=== PATIENT | male | born 1975 | race Caucasian/White ===

== ENCOUNTER 2023-06-26 19:14 | Emergency (ER) | payer BC, SELFPAY ==
[2023-06-26 19:46] VITALS: BP 139/90; PULSE 88; RESP 18; TEMP 36.4; O2SAT 96
--- NOTE | 2023-06-26 21:35 | ED.BACK ---
HPI - Back Pain/Injury General Chief Complaint: Back Injury/Pain Stated Complaint: Lower back pain Time Seen by Provider: 06/26/23 21:25 History of Present Illness HPI Narrative: Patient is a 48 year old gentleman who presents with acute on chronic back pain. He has pain in low lumbar spine with radiation to both buttocks. He has radiation down both eyes. He has no bowel or bladder symptoms no fever no chills no troubles with urination. Patient is had no abdominal pain no fevers no chills no night sweats. He has had no stumbling or falling and has had no weakness. Patient has been applying ice and taking limited Tylenol with no affect. Related Data Allergies Allergy/AdvReac Type Severity Reaction Status Date / Time No Known Drug Allergies Allergy Verified 06/26/23 19:49 Review of Systems Status of ROS: Reports: 10 or more systems reviewed and unremarkable except as noted in History and below Exam Narrative: Exam Narrative: EXAM GENERAL: Patient appears comfortable and well. EYES: No scleral icterus. ENT: Tympanic membranes and oropharynx normal. THYROID: no thyroid nodules or thyromegaly. LYMPH: No supraclavicular or cervical lymphadenopathy. SKIN: Visible skin seen during exam normal or with benign process only. EXT: No dependent lower extremity pedal edema. HEART: Regular rate and rhythm with no murmurs, rubs, or gallops. LUNGS: Clear to auscultation bilaterally with no crackles or wheezes. ABD: Soft, non tender, non distended. PSYCH: Good eye contact, speech is not pressured. Neurologic cranial nerves 2-12 grossly intact no focal defects no palpable findings with the exception of rigidity in lumbar spine. Const: Vital Signs, click to edit/add: Vital Signs - 24 hr 06/26/23 19:46 Temperature 97.6 F Pulse Rate [Left P ulse Oximeter] 88 Respiratory Rate 18 Blood Pressure [Ri ght Upper Arm] 139/90 H Pulse Oximetry 96 Oxygen Delivery Me thod Room Air Course Course ED Course: Patient seen examined. Vital Signs Vital signs: Initial Vital Signs Temperature 97.6 F 06/26/23 19:46 Temperature Source Temporal Artery Scan 06/26/23 19:46 Pulse Rate 88 06/26/23 19:46 Pulse Rhythm Regular 06/26/23 19:46 Respiratory Rate 18 06/26/23 19:46 Blood Pressure 139/90 H 10/27/23 19:46 Blood Pressure Mean 106 H 06/26/23 19:46 Blood Pressure Position Sitting 06/26/23 19:46 Pulse Oximetry 96 06/26/23 19:46 Oxygen Delivery Method Room Air 06/26/23 19:46 Vital Signs Temperature 97.6 F 06/26/23 19:46 Pulse Rate 88 06/26/23 19:46 Respiratory Rate 18 06/26/23 19:46 Blood Pressure 139/90 H 06/26/23 19:46 Pulse Oximetry 96 06/26/23 19:46 Oxygen Delivery Method Room Air 06/26/23 19:46 Temperature 97.6 F 06/26/23 19:46 Pulse Rate 88 06/26/23 19:46 Respiratory Rate 18 06/26/23 19:46 Blood Pressure 139/90 H 06/26/23 19:46 Pulse Oximetry 96 06/26/23 19:46 Oxygen Delivery Method Room Air 06/26/23 19:46 MDM - Back Pain/Injury MDM Narrative Medical decision making narrative: Patient is a 48-year-old gentleman who presents with mechanical low back pain. He has no alarm symptoms. His had limited effect with [id number] remedies. I did prescribe prednisone in limited number of Vicodin for the next several days I recommended ice. He has my card will contact me early next week and we will either do outpatient physical therapy or an MRI. Differential Diagnosis Differential diagnosis: Likely lumbar radiculopathy, sciatica, strain of lumbar region, pyelonephritis, thoracic back pain and AAA Discharge Plan Discharge Clinical Impression: Lumbar radiculopathy Patient Disposition: Home, Self-Care Condition: Improved Instructions: Back Pain (ED) Additional Instructions: Ice Pain meds as directed Prednisone as directed Follow-up with Dr. Austin next week. Activity Level: No Restrictions Discharge Diet: Regular Stand Alone Forms: [employer] Info Instructions
== END 2023-06-26 21:59 | disposition home or self-care (01) ==
LOC: ED 21:45
PROVIDERS: Emergency Provider Internal Medicine
DX: M54.16 Radiculopathy, lumbar region (principal)
CPT/HCPCS: 99283

== ENCOUNTER 2023-12-26 13:55 | Emergency (ER) | payer BC, SELFPAY ==
[2023-12-26 13:59] VITALS: BP 159/100; PULSE 92; RESP 18; TEMP 36.2; O2SAT 94; BMI 34.3
--- NOTE | 2023-12-26 14:21 | XR_ITS ---
Patient: KYLEE SHARP Facility:?[facility] Patient ID:?[id number] Site Patient ID:?[id number]. Site :?[id number] Study:?XRay-Chest 2V-12/26/2023 2:28:56 PM Ordering Physician:SHERIE Final Report: INDICATION: Dyspnea. TECHNIQUE: Chest radiographs, 2 views. COMPARISON: Chest radiograph 12/25/2021. FINDINGS: Cardiovascular/Mediastinum: Normal heart size. Unremarkable. Lungs: No focal consolidation. Linear band like opacification likely due to subsegmental atelectasis and/or scarring. Airways: Trachea remains midline. Pleura: No pleural effusions or pneumothorax. Bones: No acute osseous abnormalities. Mild degenerative changes of the thoracic spine. Upper abdomen: Unremarkable. IMPRESSION: No acute cardiopulmonary process. Dictated by Reilly Grullon MD @ 12/26/2023 3:27:42 PM Signed by:?Reilly Grullon MD @12/26/2023 3:27:42 PM (Electronic Signature)
--- NOTE | 2023-12-26 14:23 | ED_ITS ---
HPI - General Adult General Chief complaint: Cough Stated complaint: coughing, fatigue Time Seen by Provider: 12/26/23 13:56 Source: patient Mode of arrival: ambulatory Limitations: no limitations History of Present Illness HPI narrative: 48-year-old male on no medications, presents with 2 weeks of not feeling well. He states that it started with a scratchy throat and headache. This proceeded to a cough that keeps him up all night. He states that he believes he had a fever twice in the last 2 weeks but nothing in the last several days. He denies chest pain or shortness of breath. He denies abdominal discomfort. He denies any swelling of the extremities, no rashes. He states that he did get his symptoms from a co-worker who was also ill for quite some time. He feels achy all over. Appetite is a little bit decreased but he has been eating and drinking. No urinary symptoms. No recent traveling. Related Data Previous Rx's Medication Instructions Recorded benzonatate 100 mg capsule 100 mg PO TID PRN cough #14 caps 12/26/23 Allergies Allergy/AdvReac Type Severity Reaction Status Date / Time No Known Drug Allergies Allergy Verified 06/26/23 19:49 Review of Systems Status of ROS: Reports: 10 or more systems reviewed and unremarkable except as noted in History and below PFSH PFS Social History Smoking Status: Never smoker Do you use any of these nicotine containing products: None Second hand tobacco smoke exposure: No How often do you have a drink containing alcohol: never How often do you have six or more drinks on one occasion: Never AUDIT-C Alcohol total score: 0 Non-prescribed substance use: denies use service: No Exam Narrative: Exam Narrative: Overweight, well-developed patient in no acute distress. Alert and oriented. Answers questions appropriately. Mood and affect are appropriate. Thoughts are goal oriented and rational. No tangential or magical thinking noted. Patient speaks in full sentences without needing to catch his breath. HEENT: Normocephalic atraumatic. Pupils are equally round reactive to light. Extraocular muscles are intact. Conjunctivae are moist without any icterus noted. Moist mucous membranes. Posterior pharynx is normal. Uvula is large. Neck is soft without any lymphadenopathy or thyromegaly. No masses are appr eciated. Cardiovascular: Heart is regular rate and rhythm S1 and S2 are present without any murmurs. Lungs: Clear to auscultation bilaterally no wheezes rhonchi or rales are appreciated. Patient takes deep breaths without any discomfort. Abdomen: Soft and nontender nondistended with normal bowel sounds. Extremities: Bilateral lower extremities are without edema. Skin: Well perfused without any obvious rashes. Const: Vital Signs, click to edit/add: Vital Signs - 24 hr 12/26/23 13:59 12/26/23 15:00 12/26/23 15:01 Temperature 97.2 F L Pulse Rate [Right Pulse Oximeter] 92 89 89 Respiratory Rate 18 18 Blood Pressure [Ri ght Upper Arm] 159/100 H 141/95 H Pulse Oximetry 94 96 Oxygen Delivery Me thod Room Air Room Air Course Course ED Course: Chest x-ray, read by me, does not show any acute pathology. Labs were unremarkable including a CBC, chemistries and triple swab. Vital Signs Vital signs: Initial Vital Signs Temperature 97.2 F L 12/26/23 13:59 Temperature Source Temporal Artery Scan 12/26/23 13:59 Pulse Rate 92 12/26/23 13:59 Respiratory Rate 18 12/26/23 13:59 Blood Pressure 159/100 H 12/26/23 13:59 Blood Pressure Mean 119 H 12/26/23 13:59 Blood Pressure Position Sitting 12/26/23 13:59 Pulse Oximetry 94 12/26/23 13:59 Oxygen Delivery Method Room Air 12/26/23 13:59 Vital Signs Temperature 97.2 F L 12/26/23 13:59 Pulse Rate 92 12/26/23 13:59 Respiratory Rate 18 12/26/23 13:59 Blood Pressure 159/100 H 12/26/23 13:59 Pulse Oximetry 94 12/26/23 13:59 Oxygen Delivery Method Room Air 12/26/23 13:59 Temperature 97.2 F L 12/26/23 13:59 Pulse Rate 89 12/26/23 15:01 Respiratory Rate 18 12/26/23 15:01 Blood Pressure 141/95 H 12/26/23 15:01 Pulse Oximetry 96 12/26/23 15:01 Oxygen Delivery Method Room Air 12/26/23 15:01 Medical Decision Making MDM Narrative Medical decision making narrative: 48-year-old male with cough, likely viral in nature. Will send the patient home with Xochitl Low. Lab Data Lab results reviewed: Yes I reviewed the patient's lab results Labs: Lab Results 12/26/23 12/26/23 Range/Units 14:27 14:42 WBC 7.36 (4.50-11.00) K/uL RBC 5.19 (4.30-5.90) m/uL Hgb 14.5 (13.5-17.5) gm/dL Hct 43.2 (37.0-53.0) % MCV 83 (80-100) fL MCH 28 (26-34) pg MCHC 34 (32-36) gm/dL RDW Coeff of Elizabeth 12.0 (11.5-15.5) % Plt Count 263 (140-440) K/uL Neut % (Auto) 68.0 (42.0-72.0) % Lymph % (Auto) 18.8 L (20-44) % [place] % (Auto) 7.5 (0.0-11.0) % Eos % (Auto) 4.2 (0.0-7.0) % Baso % (Auto) 0.4 (0.0-3.0) % Neut # (Auto) 5.01 (1.7-7.0) K/uL Lymph # (Auto) 1.40 (0.90-2.90) K/uL [place] # (Auto) 0.60 (0.00-0.90) K/UL Eos # (Auto) 0.31 (0.00-0.50) K/uL Baso # (Auto) 0.03 (0.00-0.30) K/uL Abs Immat Gran (auto) 0.08 (0.00-0.30) K/uL Imm/Tot Granulo (auto) 1.1 % Sodium 140 (135-149) mmol/L Potassium 3.8 (3.6-5.1) mmol/L Chloride 106 (96-114) mmol/L Carbon Dioxide 29 (20-32) mmol/L Anion Gap 5 L (7-15) mEq/L BUN 12 (5-24) mg/dL Creatinine 0.6 (0.5-1.5) mg/dL Estimated Creat Clear 168.31 Estimated GFR 118 ml/min Glucose 109 (60-115) mg/dL Calcium 9.0 (8.4-10.6) mg/dL SARS-CoV-2 (PCR) Negative SARS-CoV-2 (Negative) Influenza Type A (PCR) Negative PCR FLU A (Negative) Influenza Type B (PCR) Negative PCR FLU B (Negative) RSV (PCR) Negative PCR RSV (Negative) Imaging Data Chest x-ray: Attestation: I have reviewed the pertinent imaging results. Radiologist's impression: Chest radiographs, 2 views. COMPARISON: Chest radiograph 12/25/2021. FINDINGS: Cardiovascular/Mediastinum: Normal heart size. Unremarkable. Lungs: No focal consolidation. Linear band like opacification likely due to subsegmental atelectasis and/or scarring. Airways: Trachea remains midline. Pleura: No pleural effusions or pneumothorax. Bones: No acute osseous abnormalities. Mild degenerative changes of the thoracic spine. Upper abdomen: Unremarkable. IMPRESSION: No acute cardiopulmonary process. Discharge Plan Discharge Clinical Impression: Cough Patient Disposition: Home, Self-Care Condition: Stable Additional Instructions: Your workup did not show any evidence of pneumonia or other bacterial infection today. Cough is likely viral in nature and can last few weeks. Try taking Tessalon Perles (benzonatate) throughout the day as needed/as directed and before bed to see if this helps you sleep. Can also take [id number] cough syrups or cough drops. Follow-up with your primary care provider in 1-2 weeks if you feel that you are not improving. Return to the ER if you develop a fever or your symptoms become worse. Prescriptions: New benzonatate 100 mg capsule 100 mg PO TID PRN (Reason: cough) Qty: 14 0RF Follow Up/Referrals: Provider,Not a Local [Primary Care Provider] - Stand Alone Forms: [employer] Info Instructions
--- OUTSIDE RECORDS SUMMARY | 2023-12-26 14:39 | XMS_ITS | Clinical Summary ---
Author Name Unknown Organization [facility] Address [address] [place] [address] Care Team Providers Care Warehouse Consultant Name Role Phone No Primary/Referring, Phy Primary Care Provider Unavailable Source Comments You are receiving this document as you are listed as the primary care provider,follow-up provider, or the patient has been referred to you for consultation.This is in compliance with the Medicare and[facility] E[facility] Incentive [facility],which states Providers who transition their patient to another setting of careor provider of care or refers their patient to another provider of care shouldprovide summary care record for each transition of care or referral. [facility] Allergies No known active allergies Medications Medication Sig Dispensed Refills Start Date End Date Status oxyCODONE-acetaminop hen (PERCOCET) 5-325 MG tablet Take 1 Tablet by mouth every 4 hours as needed for Pain. 10 Tablet 03/02/2021 Active tamsulosin (FLOMAX) 0.4 MG CAPS capsule Take 1 Capsule by mouth daily. 14 Capsule 3 03/02/2021 Active Social History Tobacco Use Types Packs/Day Years Used Date Smoking Tobacco: Never Smokeless Tobacco: Never Alcohol Use Standard Drinks/Week Comments Yes 0 (1 standard drink = 0.6 oz pur e alcohol) Sex and Gender Information Value Date Recorded Sex Assigned at Not on file Gender Identity Not on file Sexual Orientation Not on file Last Filed Vital Signs Vital Sign Reading Time Taken Comments Blood Pressure 148/80 03/02/2021 10:46 PM CDT Pulse 88 03/02/2021 10:46 PM CDT Temperature 36.6 ??C (97.8 ??F) 03/02/2021 8:29 PM CD T Respiratory Rate 12 03/02/2021 10:46 PM CDT Oxygen Saturation 97% 03/02/2021 10:46 PM CDT Inhaled Oxygen Concentration - - Weight 113.4 kg (250 lb) 03/02/2021 8:29 PM CDT Height 182.9 cm (6') 03/02/2021 8:29 PM CDT Body Mass Index 33.91 03/02/2021 8:29 PM CDT Plan of Treatment Health Maintenance Due Date Last Done Comments Colon Cancer Screening Plan Due 1974 Hep C Screening (Preventive Services) 1974 HIV Screening (Preventive Services) 1990 Adult Preventive Visit 1992 DTaP/Tdap/Td (1 - Tdap) 1993 HepB (1) 1993 Cholesterol 2009 COVID-19 Vaccine ( - 2022-2 4 season) 2023 Influenza (#1) 2023 Zoster/Shingles (1 of 2) 2024 HepA Aged Out No longer eligi ble based on patient's age to complete this topic Hib Aged Out No longer eligi ble based on patient's age to complete this topic IPV (Polio) Aged Out No longer eligi ble based on patient's age to complete this topic MCV4 Aged Out No longer eligi ble based on patient's age to complete this topic Pneumococcal Aged Out No longer eligi ble based on patient's age to complete this topic Care Teams Warehouse Consultant Relationship Specialty Start Date End Date No Primary/Referring, Leiday PCP - General 03/02/21
[2023-12-26 14:48] LABS: Basophils Absolute Auto 0.03 K/uL (0.00-0.30); Basophils Percent Auto 0.4 % (0.0-3.0); Eosinophils Absolute Auto 0.31 K/uL (0.00-0.50); Eosinophils Percent Auto 4.2 % (0.0-7.0); Hematocrit 43.2 % (37.0-53.0); Hemoglobin* 14.5 gm/dL (13.5-17.5); Immature Granulocytes Abs Auto 0.08 K/uL (0.00-0.30); Immature Granulocytes Pct Auto 1.1 %; Lymphocytes Percent Auto 18.8 % (20-44); Mean Corpuscular HGB Conc 34 gm/dL (32-36); Mean Corpuscular Hemoglobin 28 pg (26-34); Mean Corpuscular Volume 83 fL (80-100); Monocytes Percent Auto 7.5 % (0.0-11.0); Neutrophils Absolute Auto 5.01 K/uL (1.7-7.0); Platelet Count* 263 K/uL (140-440); Red Blood Count 5.19 m/uL (4.30-5.90); White Blood Count* 7.36 K/uL (4.50-11.00)
[2023-12-26 14:59] LABS: Slide Review Reflex No
[2023-12-26 15:00] VITALS: PULSE 89
[2023-12-26 15:01] VITALS: BP 141/95; PULSE 89; RESP 18; O2SAT 96
[2023-12-26 15:05] LABS: Chloride* 106 mmol/L (96-114); Potassium* 3.8 mmol/L (3.6-5.1); Sodium* 140 mmol/L (135-149)
[2023-12-26 15:07] LABS: PCR FLU A Negative PCR FLU A (Negative); PCR FLU B Negative PCR FLU B (Negative); PCR RSV Negative PCR RSV (Negative); SARS PCR* Negative SARS-CoV-2 (Negative)
[2023-12-26 15:08] LABS: Anion Gap 5 mEq/L (7-15); Blood Urea Nitrogen* 12 mg/dL (5-24); Carbon Dioxide* 29 mmol/L (20-32); Creatinine* 0.6 mg/dL (0.5-1.5); Est. Creatinine Clearance* 168.31; Estimated Glomerular Filt Rate 118 ml/min; Glucose* 109 mg/dL (60-115)
== END 2023-12-26 15:55 | disposition home or self-care (01) ==
LOC: ED 14:37
PROVIDERS: Emergency Provider Family Medicine
DX: R05.9 Cough, unspecified (principal)
CPT/HCPCS: 36415; 71046; 80048; 85025; 87631; 99283; 99284

== ENCOUNTER 2024-05-03 19:53 | Emergency (ER) | payer OTHER, SELFPAY ==
[2024-05-03 19:59] VITALS: BP 126/78; PULSE 116; RESP 20; TEMP 38.2; O2SAT 96; BMI 34.3
[2024-05-03 20:28] LABS: Basophils Percent Auto 0.1 % (0.0-3.0); Eosinophils Percent Auto 0.3 % (0.0-7.0); Hematocrit 40.9 % (37.0-53.0); Hemoglobin* 13.5 gm/dL (13.5-17.5); Immature Granulocytes Pct Auto 0.2 %; Lymphocytes Percent Auto 6.9 % (20-44); Mean Corpuscular HGB Conc 33 gm/dL (32-36); Mean Corpuscular Hemoglobin 28 pg (26-34); Mean Corpuscular Volume 85 fL (80-100); Monocytes Percent Auto 5.8 % (0.0-11.0); Neutrophils Percent Auto 86.7 % (42.0-72.0); Platelet Count* 213 K/uL (140-440); RDW Coefficient of Variation % 12.1 % (11.5-15.5); Red Blood Count 4.83 m/uL (4.30-5.90); White Blood Count* 18.82 K/uL (4.50-11.00)
--- OUTSIDE RECORDS SUMMARY | 2024-05-03 20:29 | XMS_ITS | Clinical Summary ---
Author Organization [facility] Address [address], [place] [address] Care Team Providers Care Front Office Specialist Name Role Phone No Primary/Referring, Phy Primary Care Provider Unavailable Source Comments You are receiving this document as you are listed as the primary care provider,follow-up provider, or the patient has been referred to you for consultation.This is in compliance with the Medicare and[facility]centive [facility],which states Providers who transition their patient to another setting of careor provider of care or refers their patient to another provider of care shouldprovide summary care record for each transition of care or referral. [email or web address] Allergies No known active allergies Medications Medication [...] 1974 Hep C Screening (Preventive Services) 1974 PSA Screening Discussion 1974 HIV Screening (Preventive Services) 1990 Adult Preventive Visit 1992 DTaP/Tdap/Td (1 - Tdap) 1993 HepB (1) 1993 Cholesterol 2009 Zoster/Shingles (1 of 2) 2024 COVID-19 Vaccine (1 - 2022-2 4 season) 2024 Influenza (#1) 2024 HepA Aged Out No longer eligi [...] age to complete this topic Care Teams Front Office Specialist Relationship Specialty Start Date End Date No Primary/Referring, Phy PCP - General 03/02/21
[2024-05-03 20:32] LABS: Slide Review Reflex No
[2024-05-03] MEDS: CEFAZOLIN 2 GM INJ IVP (20:39)
[2024-05-03 20:40] VITALS: PULSE 103; O2SAT 95
[2024-05-03] MEDS: ACETAMINOPHEN 500 MG TABLET 1000 MG PO (20:40)
[2024-05-03 20:45] LABS: Chloride* 102 mmol/L (96-114); Potassium* 3.9 mmol/L (3.6-5.1); Sodium* 137 mmol/L (135-149)
[2024-05-03 20:47] LABS: Creatinine* 0.8 mg/dL (0.5-1.5); Est. Creatinine Clearance* 124.84; Estimated Glomerular Filt Rate 108 ml/min
[2024-05-03 20:48] LABS: Anion Gap 8 mEq/L (7-15); Blood Urea Nitrogen* 11 mg/dL (7-30); Carbon Dioxide* 27 mmol/L (20-32); Glucose* 125 mg/dL (60-115)
[2024-05-03 20:49] LABS: Calcium* 9.2 mg/dL (8.4-10.6)
--- NOTE | 2024-05-03 21:02 | ED.GENADULT ---
HPI - General Adult General Chief complaint: Animal Bite Stated complaint: dog bite - work [employer] Time Seen by Provider: 05/03/24 20:05 Source: patient Mode of arrival: ambulatory Limitations: no limitations History of Present Illness HPI narrative: 49-year-old male comes in today with leg pain. Patient was bit by a dog a 7 days ago on the left lower extremity. In the last couple days he has noticed increased swelling and erythema and discomfort. He denies fevers at home, no chills. No nausea or vomiting. No changes in his appetite although he states that he has been in the whole lot today because he has been dizzy. He denies any chest pain, cough, abdominal pain. Patient is a surprise to hear that he is febrile upon arrival to the ER. He denies any medical history, takes no medications. Related Data Home Medications ?Medication ?Instructions ?Recorded ?Confirmed No Known Home Medications 05/03/24 05/03/24 Allergies Allergy/AdvReac Type Severity Reaction Status Date / Time No Known Drug Allergies Allergy Verified 06/26/23 19:49 Review of Systems Status of ROS: Reports: 10 or more systems reviewed and unremarkable except as noted in History and below [facility] Social History Smoking Status: Never smoker Do you use any of these nicotine containing products: None Second hand tobacco smoke exposure: No How often do you have a drink containing alcohol: never How often do you have six or more drinks on one occasion: Never AUDIT-C Alcohol total score: 0 Non-prescribed substance use: denies use service: No Exam Narrative: Exam Narrative: Well-nourished well-developed patient in no acute distress. Alert and oriented. Answers questions appropriately. Mood and affect are appropriate. Thoughts are goal oriented and rational. No tangential or magical thinking noted. Patient speaks in full sentences without needing to catch a breath. HEENT: Normocephalic atraumatic. Pupils are equally round reactive to light. Extraocular muscles are intact. Conjunctivae are moist without any icterus noted. Moist mucous membranes. Neck is soft. Cardiovascular: Tachycardic, S1-S2 present without any murmurs. Lungs: Clear to auscultation bilaterally no wheezes rhonchi or rales are appreciated. Patient takes deep breaths without any discomfort. Abdomen: Soft and nontender nondistended with normal bowel sounds. Extremities: Bilateral lower extremities are without pitting edema. The left lower extremity shows erythema from the ankle all the way to just distal to the knee, erythema or circumferential, the extremity is hot to touch. He has no calf tenderness. The skin is swollen and shiny. Normal be PT and DP pulses. Erythema does not involve the knee or the ankle joints. Const: Vital Signs, click to edit/add: Vital Signs - 24 hr 05/03/24 19:59 05/03/24 20:40 05/03/24 21:11 Temperature 100.8 F H Pulse Rate [Pulse Oximeter] 116 H 103 H 105 H Respiratory Rate 20 Blood Pressure [[facility] Upper Arm] 126/78 120/74 Pulse Oximetry 96 95 95 Oxygen Delivery Me thod Room Air Room Air Room Air Course Course ED Course: IV established and labs drawn. Patient is given a dose of Tylenol. Blood cultures drawn. CBC showed a white cell count of 18.82, 86.7% neutrophils. Dose of IV cefazolin is given. Lactate is normal at 1.0. Chemistries are normal. CRP 14.5 500 mL of normal saline is started. After fluids and Tylenol, patient's pulse went from 116 to 100. A temperature down to 99.6. Vital Signs Vital signs: Initial Vital Signs Temperature 100.8 F H 05/03/24 19:59 Temperature Source Oral 05/03/24 19:59 Pulse Rate 116 H 05/03/24 19:59 Respiratory Rate 20 05/03/24 19:59 Blood Pressure 126/78 05/03/24 19:59 Blood Pressure Mean 94 05/03/24 19:59 Blood Pressure Position Sitting 05/03/24 19:59 Pulse Oximetry 96 05/03/24 19:59 Oxygen Delivery Method Room Air 05/03/24 19:59 Vital Signs Temperature 100.8 F H 05/03/24 19:59 Pulse Rate 116 H 05/03/24 19:59 Respiratory Rate 20 05/03/24 19:59 Blood Pressure 126/78 05/03/24 19:59 Pulse Oximetry 96 05/03/24 19:59 Oxygen Delivery Method Room Air 05/03/24 19:59 Temperature 100.8 F H 05/03/24 19:59 Pulse Rate 105 H 05/03/24 21:11 Respiratory Rate 20 05/03/24 19:59 Blood Pressure 120/74 05/03/24 21:11 Pulse Oximetry 95 05/03/24 21:11 Oxygen Delivery Method Room Air 05/03/24 21:11 Medications Administered Medications: Discontinued Medications Generic Name Dose Route Start Last Admin Trade Name Leyla PRN Reason Stop Dose Admin Acetaminophen 1,000 mg 05/03/24 20:11 05/03/24 20:40 Acetaminophen 500 Mg Tablet PO 05/03/24 20:12 1,000 mg ONCE ONE Administration Cefazolin Sodium 2 gm 05/03/24 20:11 05/03/24 20:39 Cefazolin 2 Gm Inj IVP 05/03/24 20:12 2 gm ONCE ONE Administration Sodium Chloride 500 mls @ 500 mls/hr 05/03/24 20:11 05/03/24 21:10 0.9 % Sodium Chloride 500 Ml IV 05/03/24 21:10 500 mls/hr .Q1H ONE Administration Medical Decision Making MDM Narrative Medical decision making narrative: Dog bite resulting in cellulitis. Patient does not wish to be admitted at this time states that he has to go to work tomorrow. Because he feels fine I do think that going home is an acceptable plan of action, but I do want him to have close follow-up. Patient does not have a primary care provider. He is going to call the [facility] 1st thing in the morning to set up an ER follow-up appointment in the next 24-48 hours. He understands if he becomes weak, starts vomiting, or in general starts to feel worse he should return to the ER. Lab Data Lab results reviewed: Yes I reviewed the patient's lab results Labs: Lab Results 05/03/24 Range/Units 20:22 WBC 18.82 H (4.50-11.00) K/uL RBC 4.83 (4.30-5.90) m/uL Hgb 13.5 (13.5-17.5) gm/dL Hct 40.9 (37.0-53.0) % MCV 85 (80-100) fL MCH 28 (26-34) pg MCHC 33 (32-36) gm/dL RDW Coeff of Elizabeth 12.1 (11.5-15.5) % Plt Count 213 (140-440) K/uL Neut % (Auto) 86.7 H (42.0-72.0) % Lymph % (Auto) 6.9 L (20-44) % [place] % (Auto) 5.8 (0.0-11.0) % Eos % (Auto) 0.3 (0.0-7.0) % Baso % (Auto) 0.1 (0.0-3.0) % Neut # (Auto) 16.30 H (1.7-7.0) K/uL Lymph # (Auto) 1.30 (0.90-2.90) K/uL [place] # (Auto) 1.10 H (0.00-0.90) K/UL Eos # (Auto) 0.10 (0.00-0.50) K/uL Baso # (Auto) 0.00 (0.00-0.30) K/uL Abs Immat Gran (auto) 0.00 (0.00-0.30) K/uL Imm/Tot Granulo (auto) 0.2 % Sodium 137 (135-149) mmol/L Potassium 3.9 (3.6-5.1) mmol/L Chloride 102 (96-114) mmol/L Carbon Dioxide 27 (20-32) mmol/L Anion Gap 8 (7-15) mEq/L BUN 11 (7-30) mg/dL Creatinine 0.8 (0.5-1.5) mg/dL Estimated Creat Clear 124.84 Estimated GFR 108 ml/min Glucose 125 H (60-115) mg/dL Lactate 1.0 (0.5-1.9) mmol/L Calcium 9.2 (8.4-10.6) mg/dL C-Reactive Protein 14.5 H (0.5-1.0) mg/dL Discharge Plan Discharge Clinical Impression: Bite by animal, Cellulitis Patient Disposition: Home, Self-Care Condition: Stable Additional Instructions: Take all antibiotics as prescribed. Stay well hydrated. Okay to take Tylenol up to 1000 mg 3 times per day or ibuprofen up to 800 mg 4 times per day. You need to call the primary care clinic in [place] tomorrow morning and ask for a same-day appointment for emergency room follow-up. You should be seen tomorrow or the day after at the latest. If you start to vomit, feel weak, lightheaded, or generally start to feel worse, you should return to the emergency department. Augmentin 875 p.o. b.i.d. for 7 days sent to [facility]. Prescriptions: No Action No Known Home Medications Follow Up/Referrals: Provider,Not a Local [Primary Care Provider] - Stand Alone Forms: [employer] Info Instructions
[2024-05-03 21:06] LABS: C Reactive Protein* 14.5 mg/dL (0.5-1.0)
[2024-05-03] MEDS: 0.9 % SODIUM CHLORIDE 500 ML 500 ML IV (21:10)
[2024-05-03 21:11] VITALS: BP 120/74; PULSE 105; O2SAT 95
[2024-05-03 21:43] VITALS: PULSE 100; TEMP 37.6
== END 2024-05-03 21:57 | disposition home or self-care (01) ==
PROVIDERS: Emergency Provider Family Medicine
DX: L03.116 Cellulitis of left lower limb (principal); W54.0XXA Bitten by dog, initial encounter
CPT/HCPCS: 36415; 80048; 83605; 85025; 86140; 87040; 96374; 99283; 99284; A9270; J0690; J7030

== ENCOUNTER 2024-07-02 10:43 | Emergency (ER) | payer BC, SELFPAY ==
[2024-07-02 10:47] VITALS: BP 176/98; PULSE 93; RESP 18; TEMP 36.1; O2SAT 97; BMI 35.3
--- NOTE | 2024-07-02 11:02 | CRLHL7_ITS ---
For Patients: As a result of the Century Cures Act, medical imaging exams and procedure reports are released immediately into your electronic medical record. You may view this report before your referring provider. If you have questions, please contact your health care provider. INDICATION: Right-sided abdominal pain. Evaluate for urolithiasis. TECHNIQUE: CT abdomen and pelvis without contrast. Coronal and sagittal reformats were obtained. COMPARISON: CT abdomen/pelvis from 12/25/2021. FINDINGS: Lower chest: Within normal limits. Liver: Within normal limits. Spleen: Within normal limits. Pancreas: Within normal limits. Gallbladder and bile ducts: Within normal limits. Kidneys: Multiple prominent left parapelvic cysts. No obstructing or nonobstructing calculi. No hydronephrosis or ureterectasis. Adrenal glands: Within normal limits. Bowel: Stool throughout the ascending colon. Sigmoid diverticulosis. Vascular: Minor atherosclerotic changes. Lymph nodes: Within normal limits. Peritoneum: Within normal limits. Pelvis: Within normal limits. Abdominal wall: There is a periumbilical hernia which does not contain any loops of bowel. The abdominal defect measures up to 12 millimeters in axial diameter. There also bilateral fat containing inguinal hernias. Bones: No acute fractures. L5-S1 advanced disc degeneration. Right central/subarticular disc osteophyte which may impinge the right S1 nerve root. Bilateral SI joint arthrosis. IMPRESSION: 1. No acute intra-abdominal pathology, including no evidence of obstructing or nonobstructing renal calculi. Please note that all CT scans at this facility use dose modulation, iterative reconstruction, and/or weight-based dosing when appropriate to reduce radiation dose to as low as reasonably achievable. Dictated by Leno Ashby MD @ 07/02/2024 12:14:10 PM (Electronically Signed)
--- NOTE | 2024-07-02 11:07 | ED_ITS ---
HPI - Abdominal Pain General Date Seen: 07/02/24 Chief Complaint: Back Injury/Pain Stated Complaint: Back pain, suspected kidney stones Time Seen by Provider: 07/02/24 10:47 Source: patient Mode of arrival: ambulatory Limitations: no limitations History of Present Illness HPI narrative: Patient is a 49-year-old gentleman who presents here ambulatory to the emergency room for evaluation of right-sided back and abdominal discomfort he comes and goes over the course of the last 9-10 days. Sometimes it doubles him over. Feels colicky in nature, and feels a lot like previous kidney stones that he has had. He just could not take it any longer presented here for evaluation he is not taking any medications for this no Tylenol ibuprofen or any other NSAIDs. Typically tells me with his kidney stones they do not help. His last bout was approximately 3-4 years ago he was able to pass it on his own, he has never before had have instrumentation done to retrieve the stone. He said whatever they gave him in the emergency room last time lasted for 3-4 days and he did not require any narcotic medication. Denies any fevers or chills, nausea vomiting, abnormal bowel movements, dysuria frequency or hematuria with this works for [employer] and has been able to work through this issue. Does have a history of umbilical, and bilateral inguinal hernias that he has thinks he would like to get fixed before he retires from [employer] next year. Appetite has been good, he is on no chronic medications other than daily multivitamin. No bad habits such as drugs, alcohol or smoking. Related Data Previous Rx's ?Medication ?Instructions ?Recorded ketorolac 10 mg tablet 10 mg PO Q8H PRN pain 4 days #14 07/02/24 tabs Allergies Allergy/AdvReac Type Severity Reaction Status Date / Time No Known Drug Allergies Allergy Verified 06/26/23 19:49 Review of Systems Status of ROS Reports: 10 or more systems reviewed and unremarkable except as noted in History and below PFSH [facility] Social History What is your current living situation?: I presently have a place to live Problems where you live: no known problems In the past 12 months, utilities in danger of being shut off: no In past 12 months, lack of transportation kept you from medical appts, meetings, work, or getting things needed for daily living: no In the past 12 mos, have been you worried that your food would run out before you had money to buy more?: never true In the past 12 mos, the food you bought just didn't last and you didn't have money to buy more?: never true Smoking Status: Never smoker Do you use any of these nicotine containing products: None Second hand tobacco smoke exposure: No How often do you have a drink containing alcohol: never How often do you have six or more drinks on one occasion: Never AUDIT-C Alcohol total score: 0 Non-prescribed substance use: denies use How often does anyone, including family, friends and others, physically hurt you : never How often does anyone, including family, friends and others, insult or talk down to you: never How often does anyone, including family, friends and others, threaten you with harm: never How often does anyone, including family, friends and others, scream or curse at you: never service: No Exam Narrative: Exam Narrative: On examination in room 2 patient appears to be no distress, pupils are equal round reactive to light there is no scleral icterus redness oropharynx normal neck is supple no meningismus, chest is good air entry bilaterally with no wheezing crackles noted his heart sounds are normal his abdomen is slightly obese. With the slightly elevated BMI, but is nontender to palpation negative Cohn sign, he does have bilateral non incarcerated, inguinal hernias, and an umbilical hernia also. That all can be gently palpated and reduced. Normal male genitalia, bowel sounds are normal, some mild right-sided CVA discomfort. When he is able to move around, forward flexion extension and lateral flexion normal SLR is are negative to 90?, with no evidence of any radicular symptoms into his legs skin reveals no petechiae rashes, Const: Vital Signs, click to edit/add: Vital Signs - 24 hr 07/02/24 10:47 Temperature 97.0 F L Pulse Rate [Right Pulse Oximeter] 93 Respiratory Rate 18 Blood Pressure [Ri ght Upper Arm] 176/98 H Pulse Oximetry 97 Oxygen Delivery Me thod Room Air Documenting provider has reviewed patient's vital signs: yes Course Course ED Course: Discussed with the patient, I do not see anything acute here, I would recommend rechecking his glucose and his blood pressure with primary care, I little bit of Toradol may help him with his pain with his back, as he is going to [place] if as and [place], although chronically cannot use this, as it can cause some issues. Would recommend follow up, if ongoing signs and symptoms with primary care, explained this to him and he was accepting. He felt a little bit better after we gave him the Toradol. Vital Signs Vital signs: Initial Vital Signs Temperature 97.0 F L 07/02/24 10:47 Temperature Source Temporal Artery Scan 07/02/24 10:47 Pulse Rate 93 07/02/24 10:47 Respiratory Rate 18 07/02/24 10:47 Blood Pressure 176/98 H 07/02/24 10:47 Blood Pressure Mean 124 H 07/02/24 10:47 Blood Pressure Position Sitting 07/02/24 10:47 Pulse Oximetry 97 07/02/24 10:47 Oxygen Delivery Method Room Air 07/02/24 10:47 Vital Signs Temperature 97.0 F L 07/02/24 10:47 Pulse Rate 93 07/02/24 10:47 Respiratory Rate 18 07/02/24 10:47 Blood Pressure 176/98 H 07/02/24 10:47 Pulse Oximetry 97 07/02/24 10:47 Oxygen Delivery Method Room Air 07/02/24 10:47 Temperature 97.0 F L 07/02/24 10:47 Pulse Rate 93 07/02/24 10:47 Respiratory Rate 18 07/02/24 10:47 Blood Pressure 176/98 H 07/02/24 10:47 Pulse Oximetry 97 07/02/24 10:47 Oxygen Delivery Method Room Air 07/02/24 10:47 Medications Administered Medications: Discontinued Medications Generic Name Dose Route Start Last Admin Trade Name Freq PRN Reason Stop Dose Admin Ketorolac Tromethamine 30 mg 07/02/24 11:02 07/02/24 11:21 Ketorolac 30 Mg/Ml Inj IVP 07/02/24 11:03 30 mg ONCE ONE Administration MDM - Abdominal Pain MDM Narrative Medical decision making narrative: During this evaluation of this patient I considered multiple differential diagnosis is which included the life-threatening such as appendicitis, aortic aneurysm, mesenteric ischemia, bowel perforation, volvulus, and bowel obstruction. Other differential diagnosis is include but are not limited to cho lecystitis, pancreatitis, hepatitis, gastritis, GERD, diverticulitis, peptic ulcer disease, pyelonephritis/UTI, renal colic/stone, testicular torsion as well as other acute scrotal processes, inflammatory bowel disease, as well as other etiologies Medical Records Attestation: I reviewed the patient's medical records. Lab Data Attestation: I reviewed the patient's lab results. Lab results narrative: Glucose was slightly elevated at 160, white count normal, hemoglobin normal, there was a slight elevation of his transaminases probably linked to fatty liver. Labs: Lab Results 07/02/24 Range/Units 11:20 WBC 6.01 (4.50-11.00) K/uL RBC 5.00 (4.30-5.90) m/uL Hgb 13.9 (13.5-17.5) gm/dL Hct 41.9 (37.0-53.0) % MCV 84 (80-100) fL MCH 28 (26-34) pg MCHC 33 (32-36) gm/dL RDW Coeff of Elizabeth 12.0 (11.5-15.5) % Plt Count 217 (140-440) K/uL Neut % (Auto) 72.5 H (42.0-72.0) % Lymph % (Auto) 17.1 L (20-44) % Phillips % (Auto) 7.5 (0.0-11.0) % Eos % (Auto) 2.2 (0.0-7.0) % Baso % (Auto) 0.5 (0.0-3.0) % Neut # (Auto) 4.40 (1.7-7.0) K/uL Lymph # (Auto) 1.00 (0.90-2.90) K/uL Phillips # (Auto) 0.50 (0.00-0.90) K/UL Eos # (Auto) 0.13 (0.00-0.50) K/uL Baso # (Auto) 0.03 (0.00-0.30) K/uL Abs Immat Gran (auto) 0.01 (0.00-0.30) K/uL Imm/Tot Granulo (auto) 0.2 % Sodium 138 (135-149) mmol/L Potassium 4.0 (3.6-5.1) mmol/L Chloride 103 (96-114) mmol/L Carbon Dioxide 26 (20-32) mmol/L Anion Gap 9 (7-15) mEq/L BUN 13 (7-30) mg/dL Creatinine 0.8 (0.5-1.5) mg/dL Estimated Creat Clear 121.25 Estimated GFR 108 ml/min Glucose 164 H (60-115) mg/dL Calcium 9.1 (8.4-10.6) mg/dL Total Bilirubin 0.4 (0.1-1.5) mg/dL Direct Bilirubin 0.2 (0.0-0.5) mg/dL AST 39 H (12-35) U/L ALT 84 H (4-50) U/L Alkaline Phosphatase 78 (40-150) U/L Total Protein 7.1 (6.0-8.3) g/dL Albumin 4.2 (3.3-5.0) g/dL Amylase 99 H (18-89) U/L Lipase 103 (23-300) U/L Imaging Data CT scan - abdomen: Attestation: I have reviewed the pertinent imaging results. My impression: No evidence of anything acute Radiologist's impression: atient: KYLEE SHARP Facility:?[facility] Patient ID:?[id number] Site Patient ID:?[id number]. Site :?[id number] Study:?CT-Abdomen/Pelvis W/O-07/02/2024 11:16:44 AM Ordering Physician:Mary Faira Final Report: INDICATION: Right-sided abdominal pain. Evaluate for urolithiasis. TECHNIQUE: CT abdomen and pelvis without contrast. Coronal and sagittal reformats were obtained. COMPARISON: CT abdomen/pelvis from 12/25/2021. FINDINGS: Lower chest: Within normal limits. Liver: Within normal limits. Spleen: Within normal limits. Pancreas: Within normal limits. Gallbladder and bile ducts: Within normal limits. Kidneys: Multiple prominent left parapelvic cysts. No obstructing or nonobstructing calculi. No hydronephrosis or ureterectasis. Adrenal glands: Within normal limits. Bowel: Stool throughout the ascending colon. Sigmoid diverticulosis. Vascular: Minor atherosclerotic changes. Lymph nodes: Within normal limits. Peritoneum: Within normal limits. Pelvis: Within normal limits. Abdominal wall: There is a periumbilical hernia which does not contain any loops of bowel. The abdominal defect measures up to 12 millimeters in axial diameter. There also bilateral fat containing inguinal hernias. Bones: No acute fractures. L5-S1 advanced disc degeneration. Right central/subarticular disc osteophyte which may impinge the right S1 nerve root. Bilateral SI joint arthrosis. IMPRESSION: 1. No acute intra-abdominal pathology, including no evidence of obstructing or nonobstructing renal calculi. Please note that all CT scans at this facility use dose modulation, iterative reconstruction, and/or weight-based dosing when appropriate to reduce radiation dose to as low as reasonably achievable. Dictated by Leno Ashby MD @ 07/02/2024 12:14:10 PM (Electronic Signature) Discharge Plan Discharge Clinical Impression: Strain of lumbar region, Elevated blood pressure reading, Blood glucose eleva gonzales Patient Disposition: Home, Self-Care Condition: Stable Instructions: Muscle Strain (DC), Back Pain (ED) Additional Instructions: Home rest stretching, I do recommend that you use a little bit of Toradol as needed, take it with you to [place] on her fas and hunting. CT scan and blood work all did not show any evidence of anything severe. Your glucose was also is elevated, and probably should be recheck in clinic. You should also probably get your blood pressure recheck as it was elevated here this may be from pain and just being in the ER but if it is this high all the time he would qualify for medications. Increasing pain, fevers chills nausea vomiting or other issues I would recommend to get recheck with the good news also is there is no for further ER visit seen in your kidneys, and this is usually good for a few years. Activity Level: Light activity Prescriptions: New ketorolac 10 mg tablet 10 mg PO Q8H PRN (Reason: pain) 4 Days Qty: 14 0RF Follow Up/Referrals: Provider,Not a Local [Primary Care Provider] - Stand Alone Forms: [email or web address] Info Instructions
[2024-07-02] MEDS: KETOROLAC 30 MG/ML inj IVP (11:21)
[2024-07-02 11:29] LABS: Basophils Absolute Auto 0.03 K/uL (0.00-0.30); Basophils Percent Auto 0.5 % (0.0-3.0); Eosinophils Absolute Auto 0.13 K/uL (0.00-0.50); Eosinophils Percent Auto 2.2 % (0.0-7.0); Hematocrit 41.9 % (37.0-53.0); Hemoglobin* 13.9 gm/dL (13.5-17.5); Immature Granulocytes Abs Auto 0.01 K/uL (0.00-0.30); Immature Granulocytes Pct Auto 0.2 %; Lymphocytes Percent Auto 17.1 % (20-44); Mean Corpuscular HGB Conc 33 gm/dL (32-36); Mean Corpuscular Hemoglobin 28 pg (26-34); Mean Corpuscular Volume 84 fL (80-100); Monocytes Percent Auto 7.5 % (0.0-11.0); Neutrophils Percent Auto 72.5 % (42.0-72.0); Platelet Count* 217 K/uL (140-440); White Blood Count* 6.01 K/uL (4.50-11.00)
[2024-07-02 11:32] LABS: Slide Review Reflex No
--- OUTSIDE RECORDS SUMMARY | 2024-07-02 11:43 | XMS_ITS | Clinical Summary ---
Author Organization [facility] Address [address], [place] [address] Care Team Providers Care Senior Resident Care Director Name Role Phone No Primary/Referring, Phy Primary Care Provider Unavailable Source Comments You are receiving this document as you are listed as the primary care provider,follow-up provider, or the patient has been referred to you for consultation.This is in compliance with the Medicare and[facility] EHR Incentive Program,which states Providers who transition their patient to another setting of careor provider of care or refers their patient to another provider of care shouldprovide summary care record for each transition of care or referral. [facility] Allergies No known active allergies Medications Medication [...] of 2) 2024 COVID-19 Vaccine (1 - 2023-2 5 season) 2024 Influenza (#1) 2024 HepA Aged Out No longer eligi ble based on patient's age to complete this topic Hib Aged Out No longer eligi ble based on patient's age to complete this topic IPV (Polio) Aged Out No longer eligi ble based on patient's age to complete this topic RSV Aged Out No longer eligi ble based on patient's age to complete this topic MCV4 Aged Out No longer eligi ble based on patient's age to complete this topic Pneumococcal Aged Out No longer eligi ble based on patient's age to complete this topic Care Teams Senior Resident Care Director Relationship Specialty Start Date End Date No Primary/Referring, Phy PCP - General 03/02/21
[2024-07-02 11:45] LABS: Albumin* 4.2 g/dL (3.3-5.0)
[2024-07-02 11:46] LABS: Chloride* 103 mmol/L (96-114); Sodium* 138 mmol/L (135-149)
[2024-07-02 11:47] LABS: Bilirubin Direct* 0.2 mg/dL (0.0-0.5); Bilirubin Total* 0.4 mg/dL (0.1-1.5); Total Protein* 7.1 g/dL (6.0-8.3)
[2024-07-02 11:48] LABS: Alanine Aminotransferase* 84 U/L (4-50); Alkaline Phosphatase* 78 U/L (40-150); Amylase* 99 U/L (18-89); Aspartate Amino Transferase* 39 U/L (12-35); Creatinine* 0.8 mg/dL (0.5-1.5); Est. Creatinine Clearance* 121.25; Estimated Glomerular Filt Rate 108 ml/min; Lipase* 103 U/L (23-300)
[2024-07-02 11:49] LABS: Anion Gap 9 mEq/L (7-15); Blood Urea Nitrogen* 13 mg/dL (7-30); Calcium* 9.1 mg/dL (8.4-10.6); Carbon Dioxide* 26 mmol/L (20-32); Glucose* 164 mg/dL (60-115)
[2024-07-02 12:38] LABS: Appearance Urine Clear (Clear); Bilirubin Urine Negative (Negative); Blood Urine Negative (Negative); Color Urine Yellow (Yellow); Glucose Urine Negative (Negative); Ketones Urine Negative (Negative); pH Urine 7.5 (5.0-8.5)
[2024-07-02 12:39] LABS: Bacteria Urine Few; Leukocyte Esterase Urine Trace (Negative); Nitrite Urine Negative (Negative); Protein Urine Negative (Negative); RBC Urine 0-2 (0-2); Squamous Epithelial Cell Urine Few (None-Few)
== END 2024-07-02 12:45 | disposition home or self-care (01) ==
PROVIDERS: Emergency Provider Family Medicine
DX: S39.012A Strain of muscle, fascia and tendon of lower back, initial encounter (principal); R03.0 Elevated blood-pressure reading, without diagnosis of hypertension; R73.9 Hyperglycemia, unspecified
CPT/HCPCS: 36415; 74176; 80048; 80076; 81001; 82150; 83690; 85025; 87086; 96374; 99284; J1885

== ENCOUNTER 2025-05-25 19:32 | Emergency (ER) | payer BC, SELFPAY ==
--- OUTSIDE RECORDS SUMMARY | 2025-05-25 19:34 | XMS_ITS | Clinical Summary ---
Author Organization [facility] Address [address] [place] [address] Care Team Providers Care Wagon Drill Operator Name Role Phone Elsewhere, Pcp Primary Care Provider Unavailabl e Source Comments Patient records contain information from all sites at [facility]. For routine questions regarding patient records, call [phone] during business hours, M-F 8:00 AM - 5:00 PM Central Time. Record requests for emergency care only can be directed to [phone] at any time.[facility] Allergies No known active allergies Medications multivitamin-min erals tablet Take 1 tablet by mouth daily. Active Active Problems Problem Noted Date Diagnosed Date Myopia 11/26/2013 Overview (01/01/2018): Myopia wears corrective lenses Pain Knee Left Injury Knee Initial Left Immunizations Immunization Administration Dates Next Due MMR 05/11/1992,08/29/1988 Tdap 07/23/2011 Family History Medical History Relation Name Comments Hypertension Brother DVT - Deep vein thrombosis Father Tobacco abuse Father DVT - Deep vein thrombosis Mother Diabetes Mother Hypertension Mother Relation Name Status Comments Brother Father Mother Social History Tobacco Use Types Packs/Day Years Used Date Smoking Tobacco: Never Smokeless Tobacco: Never Tobacco Cessation:Counseling Given: Not Answered Alcohol Use Standard Drinks/Week Comments Yes 0 (1 standard drink = 0.6 oz pur e alcohol) Occasional Sex and Gender Information Value Date Recorded Sex Assigned at Not on file Legal Sex Male 2:21 PM [employer] Gender Identity Not on file Sexual Orientation Not on file Last Filed Vital Signs Vital Sign Reading Time Taken Comments Blood Pressure 156/94 08/29/2024 8:52 AM [employer]TER Pulse 102 08/29/2024 8:52 AM [employer] Temperature 37.2 C (99 F) 08/29/2024 8:15 AM [employer] Respiratory Rate 18 06/16/2022 9:28 AM CDT Oxygen Saturation 95% 04/03/2021 5:57 PM CDT Inhaled Oxygen Concentration - - Weight 123 kg (270 lb 4.5 oz) 08/29/2024 8:15 AM [employer] PORTER Height 185.4 cm (6' 1) 08/29/2024 8:15 AM [employer]TER Body Mass Index 35.66 08/29/2024 8:15 AM [employer]ORTER Plan of Treatment Health Maintenance Due Date Last Done Comments CT Colonography 1974 Cologuard 1974 Colonoscopy 1974 Colorectal Cancer Screening 1974 FIT 1975 HIV Screening 1974 Hepatitis C Screening 1974 Lipid (Cholesterol) Screening 1974 Hepatitis B Vaccines (1 of 3 - 19+ 3-dose series) 1993 Fasting Glucose for Diabetes Screening 01/01/2021 01/01/2018 Pneumococcal vaccine (50+ years) (1 of 1 - PCV) 2024 Zoster Vaccines (1 of 2) 2024 Depression Screening (Annual PHQ-2) 08/31/2024 COVID-19 Vaccine (1 - 2023-2 5 season) 2025 Influenza Vaccine (#1) 2025 DTaP,Tdap,and Td Vaccines (3 - Td or Tdap) 05/05/2034 05/05/2024, 07/23/2011 IPV Vaccines Aged Out No longer eligi ble based on patient's age to complete this topic Procedures Procedure Name Priority Date/Time Associated Diagnosis Comments COMPREHENSIVE METABOLIC PANEL, S/P STAT 01/01/2018 6:32 PM CDT from Last 3 Months or Most Recently Relevant to Health Maintenance Results * (ABNORMAL) CMP (Comprehensive Metabolic Panel) (01/01/2018 6:32 PM CDT) Potassium, P 4.0 3.6 - 5.2 mmol/L 01/01/2018 6:55 PM CDT [facility] Sodium, P 141 135 - 145 mmol/L 01/01/2018 6:55 PM CDT [facility] Chloride, P 102 98 - 107 mmol/L 01/01/2018 6:55 PM CDT [facility] Bicarbonate, P 24 22 - 29 mmol/L 01/01/2018 6:55 PM CDT [facility] Anion Gap, P 15 7 - 15 01/01/2018 6:55 PM CDT [facility] BUN (Blood Urea Nitrogen), P 14 8 - 24 mg/dL 01/01/2018 6:55 PM CDT [facility] Creatinine 0.76 0.74 - 1.35 mg/dL 01/01/2018 6:55 PM CDT [facility] eGFR-Black/ >90 >=60 mL/min/BS A 01/01/2018 6:55 PM CDT [facility] Comment: ----ADDITIONAL INFORMATION---- Estimated GFR calculated using the 2009 CKD_EPI creatinine equation. eGFR Non-Black/ >90 >=60 mL/min/BS A 01/01/2018 6:55 PM T [facility] Comment: ----ADDITIONAL INFORMATION---- Estimated GFR calculated using the 2009 CKD_EPI creatinine equation. Calcium, Total, P 9.1 8.9 - 10.1 mg/dL 01/01/2018 6:55 PM CDT [facility] Glucose, P 127 70 - 140 mg/dL 01/01/2018 6:55 PM CDT [facility] Protein, Total, P 7.7 6.3 - 7.9 g/dL 01/01/2018 6:55 PM CDT [facility] Albumin, P 4.7 3.5 - 5.0 g/dL 01/01/2018 6:55 PM CDT [facility] Aspartate Aminotransferase (AST), P 32 8 - 48 U/L 01/01/2018 6:55 PM CDT [facility] Alkaline Phosphatase, P 88 45 - 115 U/L 01/01/2018 6:55 PM CDT [facility] Alanine Aminotransferase (ALT), P 66(H) 7 - 55 U/L 01/01/2018 6:55 PM CDT [facility] Bilirubin, Total, P 0.3 <=1.2 mg/dL 01/01/2018 6:55 PM CDT [facility] Blood (Blood, Venous) 01/01/2018 6:32 PM CDT 01/01/2018 6:35 PM CDT us Sin Mejia M.D. LAB BLOOD ADD-ON Final Res ult [facility] [address] [place] [address], [facility] from Last 3 Months or Most Recently Relevant to Health Maintenance Insurance SUMA MCCAULEY Care Teams Wagon Drill Operator Relationship Specialty Start Date End Date Elsewhere, Pcp PCP - General 09/19/19
[2025-05-25 19:35] VITALS: BP 140/89; PULSE 95; RESP 16; TEMP 36.6; O2SAT 93; BMI 34.3
--- OUTSIDE RECORDS SUMMARY | 2025-05-25 19:35 | XMS_ITS | Clinical Summary ---
Author Organization [facility] Address [address], [place] [address] Care Team Providers Care Design Release Engineer Name Role Phone No Primary/Referring, Phy Primary Care Provider Unavailable Source Comments You are receiving this document as you are listed as the primary care provider,follow-up provider, or the patient has been referred to you for consultation.This is in compliance with the Medicare and[facility] EHR Incentive Program,which states Providers who transition their patient to another setting of careor provider of care or refers their patient to another provider of care shouldprovide summary care record for each transition of care or referral. [facility] Allergies No known active allergies Medications oxyCODONE-aceta minophen (PERCOCET) 5-325 MG tablet Take 1 Tablet [...] at Not on file Legal Sex Male 8:23 PM CDT Gender Identity Not on file Sexual Orientation Not on file Last Filed Vital Signs Vital Sign Reading Time Taken Comments Blood Pressure 148/80 03/02/2021 10:46 PM CDT Pulse 88 03/02/2021 10:46 PM CDT Temperature 36.6 C (97.8 F) 03/02/2021 8:29 PM CDT Respiratory Rate 12 03/02/2021 10:46 PM CDT [...] Services) 1990 Adult Preventive Visit 1992 DTaP/Tdap/Td Vaccine (1 - Tdap) 1993 HepB Vaccine (1) 1993 Cholesterol 2009 Pneumococcal Vaccine 50+ Yrs (1 of 1 - PCV) 2024 Zoster/Shingles Vaccine (1 of 2) 2024 COVID-19 Vaccine (1 - 2023-2 5 season) 2025 Influenza Vaccine (#1) 2025 HepA Vaccine Aged Out No longer eligi ble based on patient's age to complete this topic Hib Vaccine Aged Out No longer eligi ble based on patient's age to complete this topic IPV (Polio) Vaccine Aged Out No longe r eligible based on patient's age to complete this topic MCV4 Vaccine Aged Out No longer eligi ble based on patient's age to complete this topic Meningococcal B Vaccine Aged Out No l onger eligible based on patient's age to complete this topic Insurance [facility] [employer] Care Teams Design Release Engineer Relationship Specialty Start Date End Date No Primary/Referring, Phy PCP - General 03/02/21
--- NOTE | 2025-05-25 19:41 | ED_ITS ---
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 This started approximately 10 days ago. Initially he states he had some discomfort and heaviness in his whole leg and was wondering about sciatica but the pain has now seemed to settle in on the inside of his right knee. He notes that when he is walking he has a hard time straightening his leg out entirely and feels that if he leaves it is somewhat flexed it feels better. He notes that being up in about feels better than lying down. He has been using ibuprofen and that has helped. He has not had a previous injury to this knee. He cannot recall any specific injury or fall. No fevers or chills. Denies any history of DVT. Denies any calf tenderness or swelling of the calf for shortness of breath. Patient is unsure if he injured himself at home or at work. Related Data Home Medications ?Medication ?Instructions ?Recorded ?Confirmed No Known Home Medications 05/25/2505/02 Allergies Allergy/AdvReac Type Severity Reaction Status Date / Time No Known Drug Allergies Allergy Verified 06/26/23 19:49 Review of Systems Status of ROS: Reports: 10 or more systems reviewed and unremarkable except as noted in History and below Const: Denies: fever or chills ENMT: Denies: neck pain Cardio: Denies: shortness of breath with exertion Resp: Denies: shortness of breath GI: Denies: vomiting Musculo: Reports: joint pain and limited range of motion; Denies: back pain, neck pain or extremity swelling Integ/Breast: Denies: rash or redness Neuro: Denies: headache PFSH PFSH Social History What is your current living situation?: I presently have a place to live Problems where you live: no known problems In the past 12 months, utilities in danger of being shut off: no In past 12 months, lack of transportation kept you from medical appts, meetings, work, or getting things needed for daily living: no In the past 12 mos, have been you worried that your food would run out before you had money to buy more?: never true In the past 12 mos, the food you bought just didn't last and you didn't have money to buy more?: never true Smoking Status: Never smoker Do you use any of these nicotine containing products: None Second hand tobacco smoke exposure: No How often do you have a drink containing alcohol: never How often do you have six or more drinks on one occasion: Never AUDIT-C Alcohol total score: 0 Non-prescribed substance use: denies use How often does anyone, including family, friends and others, physically hurt you : never How often does anyone, including family, friends and others, insult or talk down to you: never How often does anyone, including family, friends and others, threaten you with harm: never How often does anyone, including family, friends and others, scream or curse at you: never service: No Exam Narrative: Exam Narrative: Alert and oriented. No acute distress. Very well spoken gentleman. External ears eyes nose clear. No respiratory distress. Examination of the right leg shows symmetry with the left with no evidence of edema erythema or deformity. Patient has a mobile patella. He has tenderness noted over the medial joint line. No pain in the popliteal fossa or down the calf. No evidence of erythema and Rigoberto sign is negative. Full sensation in motor on the right. Const: Vital Signs, click to edit/add: Vital Signs - 24 hr 05/25/25 19:35 Temperature 98 F Pulse Rate [Pulse Oximeter] 95 Respiratory Rate 16 Blood Pressure [Ri ght Upper Arm] 140/89 H Pulse Oximetry 93 Oxygen Delivery Me thod Room Air Documenting provider has reviewed patient's vital signs: yes Course Course ED Course: Differential diagnosis includes but is not limited to DVT, meniscal tear, effusion, fracture, internal derangement of the knee. Will obtain x-ray at this time. In regards to possible DVT patient did have [address] [place] but no history of DVT, no calf tenderness swelling or shortness of breath. Vital Signs Vital signs: Initial Vital Signs Temperature 98 F 05/25/25 19:35 Temperature Source Temporal Artery Scan 05/25/25 19:35 Pulse Rate 95 05/25/25 19:35 Respiratory Rate 16 05/25/25 19:35 Blood Pressure 140/89 H 05/25/25 19:35 Blood Pressure Mean 106 H 05/25/25 19:35 Blood Pressure Position Sitting 05/25/25 19:35 Pulse Oximetry 93 05/25/25 19:35 Oxygen Delivery Method Room Air 05/25/25 19:35 Vital Signs Temperature 98 F 05/25/25 19:35 Pulse Rate 95 05/25/25 19:35 Respiratory Rate 16 05/25/25 19:35 Blood Pressure 140/89 H 05/25/25 19:35 Pulse Oximetry 93 05/25/25 19:35 Oxygen Delivery Method Room Air 05/25/25 19:35 Temperature 98 F 05/25/25 19:35 Pulse Rate 95 05/25/25 19:35 Respiratory Rate 16 05/25/25 19:35 Blood Pressure 140/89 H 05/25/25 19:35 Pulse Oximetry 93 05/25/25 19:35 Oxygen Delivery Method Room Air 05/25/25 19:35 MDM - Extremity Injury (Lower) MDM Narrative Medical decision making narrative: 1. Internal derangement right knee-strongly suspect meniscal tear as patient is unable to straight knee. X-ray did not show any acute fractures but certainly arthritic changes noted and narrowing of the medial compartment. At this time patient has no evidence of gout, DVT, cellulitis. Recommend Rigo wrap, light activity, abstaining from trying to straighten his right knee out and follow-up with orthopedics. He is requesting follow-up on Thursday as it works better in his schedule. We will give him the phone number and I strongly encouraged him to take the 1st available appointment. 2. Right knee pain-ibuprofen has been working well. Do not feel the need to in increase his dose changes dose or add steroids at this time. Would have him add some sort of stomach protection with omeprazole 20 mg daily while using ibuprofen. 3. Disposition-home at this time. Return for onset of new symptoms, fever chills or worsening symptoms. Patient declines crutches, work note. Medical Records Attestation: I reviewed the patient's medical records. Imaging Data Right knee x-ray: Attestation: I have reviewed the pertinent imaging results. My impression: By my read joint space narrowing medial knee. Osteophytes with arthritic change. No acute fracture. Radiologist's impression: Right knee pain. Technique: Three views of the right knee. Comparison: None. Findings/Impression: There is mild soft tissue swelling. No acute fracture, dislocation, or suspicious osseous lesion. No significant knee joint effusion. Small tricompartmental marginal osteophytes without significant joint space narrowing. Enthesopathic change at the quadriceps insertion. Discharge Plan Discharge Clinical Impression: Acute internal derangement of knee Patient Disposition: Home, Self-Care Condition: Unchanged Additional Instructions: Please call [facility] tomorrow morning and make an appointment for Thursday. Feel free to see 1 of the PAs or physician-however has a 1st available appointment. Their phone number is [phone]. Recommend cool packs to the knee. Recommend Rigo wraps for support. Do not try to straighten out the knee at this time. Continue ibuprofen 600 mg every 8 hours as needed for discomfort. Please take this with food and I would suggest some sort of stomach protection such as omeprazole 20 mg daily while using ibuprofen. This is over the counter and 1 tablet daily is what you would need to take. Return to the ER for fever, worsening symptoms and as needed. Prescriptions: No Action No Known Home Medications Follow Up/Referrals: Provider,Not a Local [Primary Care Provider, Family Practice] Stand Alone Forms: [employer] Info Instructions
--- NOTE | 2025-05-25 19:47 | CRLHL7_ITS ---
For Patients: As a result of the Century Cures Act, medical imaging exams and procedure reports are released immediately into your electronic medical record. You may view this report before your referring provider. If you have questions, please contact your health care provider. Indication: Right knee pain. Technique: Three views of the right knee. Comparison: None. Findings/Impression: There is mild soft tissue swelling. No acute fracture, dislocation, or suspicious osseous lesion. No significant knee joint effusion. Small tricompartmental marginal osteophytes without significant joint space narrowing. Enthesopathic change at the quadriceps insertion. Dictated by Ken Smith MD @ 05/25/2025 8:20:39 PM (Electronically Signed)
[2025-05-25 20:58] VITALS: BP 142/79; PULSE 83; RESP 18
== END 2025-05-25 20:59 | disposition home or self-care (01) ==
PROVIDERS: Emergency Provider Family Medicine
DX: M23.91 Unspecified internal derangement of right knee (principal)
CPT/HCPCS: 73562; 99283; 99284